=== PATIENT | female | born 2000 | race Caucasian/White ===

== ENCOUNTER 2020-12-06 22:24 | Emergency (ER) | payer BC ==
[~2020-12-06] VITALS: Ht 170.2 cm; Wt 65.6 kg
[2020-12-06] MEDS ORDERED: SODIUM CHLORIDE FLUSH 10ML SYR IVF ONE (23:00)
[2020-12-06] MEDS ORDERED: SODIUM CHLORIDE 0.9% 1,000ML IVBOLUS ONE (23:00)
[2020-12-06 23:55] LABS: BASOPHILS % (AUTO) 1 % (0-1); EOSINOPHILS % (AUTO) 1 % (1-7); LYMPHOCYTES % (AUTO) 34 % (22-44); MEAN CORPUSCULAR HEMOGLOBIN 32.6 pg (27.0-34.8); MONOCYTES % (AUTO) 6 % (2-9); NEUTROPHILS % (AUTO) 59 % (42-75); PLATELET COUNT 348 x10^3/uL (130-400); RED BLOOD COUNT 4.63 x10^6/uL (3.82-5.3)
[2020-12-07 00:03] LABS: ALANINE AMINOTRANSFERASE 19 U/L (12-78); ALBUMIN 3.6 g/dL (3.4-5.0); ANION GAP 5 mmol/L (5-15); CALCIUM 8.9 mg/dL (8.5-10.1); CHLORIDE 108 mmol/L (98-107); CREATININE 0.83 mg/dL (0.55-1.02)
[2020-12-07 00:08] LABS: ALKALINE PHOSPHATASE 76 U/L (45-117); BILIRUBIN,TOTAL 0.4 mg/dL (0.2-1.0); TOTAL PROTEIN 7.9 g/dL (6.4-8.2)
[2020-12-07 00:30] VITALS: BP 163/103
--- NOTE | 2020-12-07 01:06 | NUR ---
Report from Arlin ABRAMS
--- NOTE | 2020-12-07 01:08 | NUR ---
BEDSIDE REPORT TO ABBY ABRAMS
--- NOTE | 2020-12-07 01:36 | NUR ---
Patient given discharge instructions and they have confirmed that they understand the instructions. Patient ambulatory with steady gait. NAD, all questions answered appropriately, denies additional needs at this time. No personal belongings left in room after discharge.
== END 2020-12-07 01:43 | disposition home or self-care (01) ==
LOC: ED 22:29
DX: R55 Syncope and collapse (principal); Z88.2 Allergy status to sulfonamides; Z91.040 Latex allergy status
CPT/HCPCS: 36415; 80053; 84703; 85025; 93005; 96360; 96361; 99284; J7030